=== PATIENT | male | born 1955 | race Caucasian/White ===

== ENCOUNTER 2021-03-28 07:28 | Outpatient (REF) | payer MEDICARE, SELFPAY ==
[2021-03-28 11:19] LABS: MANUAL DIFF FLAG NO
[2021-03-28 11:24] LABS: Basophils Percent Auto 0.4 % (0-2); Eosinophils Absolute Auto 0.1 X10*3/uL (0.0-0.4); Eosinophils Percent Auto 1.6 % (0-4); Hematocrit 44.1 % (42.0-52.0); Hemoglobin 14.7 g/dl (14.0-18.0); Imm Gran Abs Auto 0.03 X10*3/uL (0.00-0.03); Imm Gran Pct Auto 0.3 % (0.0-0.4); Lymphocytes Percent Auto 21.7 % (20-40); Mean Corpuscular HGB Conc 33.3 g/dl (31.0-36.0); Mean Corpuscular Hemoglobin 30.4 pg (27.0-33.0); Mean Corpuscular Volume 91.1 fL (80.0-98.0); Mean Platelet Volume 11.4 fL (9.4-12.4); Monocytes Absolute Auto 0.7 X10*3/uL (0.1-1.2); Monocytes Percent Auto 7.9 % (2-11); Neutrophils Absolute Auto 6.1 x10*3/uL (2.0-8.3); Neutrophils Percent Auto 68.1 % (45-73); Platelet Count 282 X10*3/uL (160-400); Red Blood Count 4.84 X10*6/uL (4.60-5.80); Red Cell Distribution Width 12.7 % (11.0-16.0)
[2021-03-28 11:33] LABS: Estimated Average Glucose 194 mg/dL; Hemoglobin A1c % 8.4 %
[2021-03-28 11:38] LABS: Alanine Aminotransferase 30 U/L (0-40); Albumin Level 4.4 g/dL (3.5-5.0); Alkaline Phosphatase 83 U/L (39-117); Anion Gap 13 (12-20); Aspartate Amino Transferase 18 U/L (5-37); Bilirubin Total 0.7 mg/dL (0.0-1.0); Blood Urea Nitrogen 11 mg/dL (9-16); Carbon Dioxide 25 mmol/L (22-29); Chloride 105 mmol/L (96-108); Cholesterol 143 mg/dL; Estimated Glomerular Filt Rate > 60; Glucose Fasting 191 mg/dL (60-99); HDL Cholesterol 41 mg/dL; LDL Cholesterol Calculated 58 mg/dl; Potassium 4.2 mmol/L (3.3-5.1); Sodium 139 mmol/L (135-145); Total Protein 6.8 g/dL (6.5-8.0); Triglycerides 223 mg/dL
[2021-03-28 11:57] LABS: Appearance Urine CLEAR; Color Urine YELLOW; Glucose Urine UA NEG (NEG); Leukocyte Esterase Urine NEG (NEG); Nitrite Urine NEG (NEG); Specific Gravity - Urine 1.025 (1.005-1.025); Urine Blood NEG (NEG); Urine Ketones NEG (NEG); Urine Protein NEG (NEG-TRACE)
[2021-03-28 12:01] LABS: Thyroid Stimulating Hormone 2.36 uIU/mL (0.32-4.0); Vitamin D 25-OH Total 24.6 ng/mL (>30)
[2021-03-28 12:12] LABS: Creatinine Urine 127.44 mg/dL; Microalbum/Creatinine Ratio Ur 8.6 ug/mg cr
[2021-03-28 12:17] LABS: Calcium Oxalate Crystals Urine TRACE /LPF; Mucus Urine 1+ /LPF; RBC Urine 0 /HPF (0); WBC Urine 0 /HPF (0-4)
[2021-03-28 12:52] LABS: PSA,Total (Free>4and<10) 4.54 ng/mL (0.00-4.00)
== END 2021-03-28 07:29 | disposition home or self-care (01) ==
LOC: HO.HMGCLDS 07:28
PROVIDERS: PCP Internal Medicine; Visit Provider Internal Medicine
DX: Z12.5 Encounter for screening for malignant neoplasm of prostate (principal); E11.65 Type 2 diabetes mellitus with hyperglycemia; E78.00 Pure hypercholesterolemia, unspecified; E55.9 Vitamin D deficiency, unspecified; I10 Essential (primary) hypertension
CPT/HCPCS: 36415; 80053; 80061; 81001; 82043; 82306; 83036; 84153; 84443; 85025

== ENCOUNTER 2021-08-09 07:27 | Outpatient (REF) | payer MEDICARE, SELFPAY ==
[2021-08-09 11:47] LABS: Alanine Aminotransferase 23 U/L (0-40); Albumin Level 4.3 g/dL (3.5-5.0); Alkaline Phosphatase 76 U/L (39-117); Anion Gap 14 (12-20); Aspartate Amino Transferase 19 U/L (5-37); Bilirubin Total 0.8 mg/dL (0.0-1.0); Blood Urea Nitrogen 17 mg/dL (9-16); Calcium 9.8 mg/dL (8.4-10.2); Carbon Dioxide 22 mmol/L (22-29); Chloride 106 mmol/L (96-108); Estimated Glomerular Filt Rate > 60; Glucose Fasting 166 mg/dL (60-99); Potassium 4.4 mmol/L (3.3-5.1); Sodium 138 mmol/L (135-145); Total Protein 6.8 g/dL (6.5-8.0)
[2021-08-09 11:58] LABS: PSA,Total (Free>4and<10) 5.12 ng/mL (0.00-4.00); Vitamin D 25-OH Total 31.3 ng/mL (>30)
[2021-08-09 12:12] LABS: Estimated Average Glucose 166 mg/dL; Hemoglobin A1c % 7.4 %
[2021-08-10 11:33] LABS: Free Prostate Spec Ag 0.9 ng/mL; Percent Free Prostate Spec Ag 22 % (calc) (>25); Prostate Specific Ag Total 4.1 ng/mL (< OR = 4.0)
== END 2021-08-09 07:28 | disposition home or self-care (01) ==
LOC: HO.HMGCLDS 07:27
PROVIDERS: Visit Provider Internal Medicine
DX: E11.65 Type 2 diabetes mellitus with hyperglycemia (principal); E55.9 Vitamin D deficiency, unspecified; R97.20 Elevated prostate specific antigen [PSA]; Z12.5 Encounter for screening for malignant neoplasm of prostate
CPT/HCPCS: 36415; 80053; 82306; 83036; 84153; 84154

== ENCOUNTER 2021-08-18 07:47 | Day surgery (SDC) | payer MEDICARE, SELFPAY ==
[2021-08-10 13:23] VITALS: BMI 25.3
[2021-08-18 08:18] VITALS: BP 136/70; PULSE 62; RESP 18; TEMP 36.8; O2SAT 98
--- NOTE | 2021-08-18 08:21 | P.CONAN_ITS ---
HPI - Anesthesia Eval Consult details Narrative: 66 M for colonoscopy FORMERLY [facility], 1928–1983 Past Medical History Medical History (Updated 08/10/21 @ 13:20 by Mile Jurado RN) Asthma COVID-19 vaccine series completed Diabetes Elevated cholesterol HTN (hypertension) Functional capacity: independent ambulation Family History Family history of problems with anesthesia: No Surgical History Surgical History (Updated 08/10/21 @ 12:42 by Mile Jurado RN) H/O colonoscopy History of Problems with Anesthesia: No Social History Social History Are you a primary patient care secretary to a significant other at home: No Do you presently have visiting nurse or other home services: No Patient Tobacco Use Status: Never used Tobacco Use of substances other than those prescribed or required for medical reasons: Yes Substance Use Type Other:: edible marijuana on occasion for sleep Have you been hit, kicked, punched, or otherwise hurt by someone within the past year? If so, by whom?: No Are you DNR?: No Advance Directives: No Advance Directives Information Provided: Yes (brochure mailed) Advance Directives on File: No Recently lost weight without trying: No Eating poorly because of decreased appetite: No Nutrition Risks: No Nutritional Risk Poor oral hygiene: No Meds Allergies Allergy/AdvReac Type Severity Reaction Status Date / Time No Known Allergies Allergy Verified 08/10/21 13:20 Active Medications: Current Medications Lactated Ringer's (Lr) 1,000 mls @ 80 mls/hr IVCONT .[id number] PETE Sodium Biphosphate/Sodium Phosphate (Sodium Phosphate,Stafford-Dibasic 133 Ml Enema) 133 ml NM ONCE PRN PRN Reason: Poor Colonoscopy Prep Results Home Medications Medication Instructions Recorded Confirmed Last Taken Type albuterol sulfate 90 mcg/actuation 2 puff INHALATION Q4-6H PRN 08/10/21 08/10/21 Unknown History aerosol inhaler cholecalciferol (vitamin D3) 25 25 mcg PO DAILY 08/10/21 08/10/21 Unknown History mcg (1,000 unit) capsule (Vitamin D3) coenzyme Q10 50 mg capsule (Co 50 mg PO DAILY 08/10/21 08/10/21 Unknown History Q-10) enalapril maleate 20 mg tablet 20 mg PO DAILY 08/10/21 08/10/21 Unknown History glipizide 10 mg tablet 10 mg PO DAILY 08/10/21 08/10/21 Unknown History metformin 500 mg tablet 500 mg PO BID 08/10/21 08/10/21 Unknown History simvastatin 80 mg tablet 80 mg PO BEDTIME 08/10/21 08/10/21 Unknown History Exam Exam Date and Time: August 18, [id number] Height,Weight and Vital Signs: Height 5 ft 6 in Weight 71.214 kg Last Vital Signs Temp 98.2 F 08/18/21 08:18 Pulse 62 08/18/21 08:18 Resp 18 08/18/21 08:18 BP 136/70 08/18/21 08:18 Pulse Ox 98 08/18/21 08:18 Airway Mallampati Class: III TM Dist: >3cm Neck ROM: Full Loose/Missing/Broken Teeth: Yes (Multiple chipped teeth . ) Heart: S1, S2 Lungs: b/l breath sounds Assessment and Plan Assessment Anesthesia Assessment: Anesthesia Plan Discussed and Chart Reviewed Final Anesthetic Review Family History of Problems with Anesthesia: No History of Problems with Anesthesia: No NPO: Yes ASA Class: II Final Preanesthetic Review: Meds/Allgs Chart Reviewed, Consent Obtained/Reviewed and Anes Risks/Benef Reviewed Patient Risk: Intermediate Procedure Risk: Intermediate Anesthetic Plan Anesthetic Plan: MAC: Disposition: Standard PACU
[2021-08-18 08:41] LABS: Glucose, Whole Blood 243 mg/dL (60-115)
[2021-08-18] MEDS: Lactated Ringers 1,000 ML 80 ML IVCONT (08:50)
[2021-08-18 10:40] VITALS: BP 115/63; PULSE 94; RESP 16; TEMP 36.2; O2SAT 96
--- NOTE | 2021-08-18 10:42 | PM.OP ---
Brief Operative Note Date of Service: 08/18/21 Pre-op diagnosis: Screening Post-op diagnosis: other (Colon polyps) Procedure: Colonoscopy to the cecum with bx/removal of TC polyp, and hot snare polypectomy of rectal polyp with clips x 2 Surgeon: Kobe Paniagua Anesthesia: MAC Was an Counter [employer] used for this Procedure?: No Estimated blood loss (mL): 5.0 Pathology: other (A. Transverse colon polyp B. Rectal polyp) Condition: stable Disposition: PACU
[2021-08-18 10:55] VITALS: BP 125/70; PULSE 73; RESP 16; TEMP 36.2; O2SAT 100
--- NOTE | 2021-08-18 22:15 | OP_ITS ---
SURGEON: Kobe Paniagua MD INDICATIONS: The patient presents for evaluation of colorectal cancer screening. Full consent was obtained from him for this, including risks of bleeding and perforation. PREOPERATIVE DIAGNOSIS: Colorectal cancer screening. POSTOPERATIVE DIAGNOSIS: Colorectal cancer screening, colon polyps, diverticulosis, and internal hemorrhoids. PROCEDURE PERFORMED: Colonoscopy to the cecum with biopsy and removal of polyp, and hot snare polypectomy with placement of 2 resolution clips. ESTIMATED BLOOD LOSS: COMPLICATIONS: ANESTHESIA: Monitored anesthesia care. ASSISTANTS: SPECIMENS: DESCRIPTION OF PROCEDURE: The patient was placed in the left lateral decubitus position. The digital rectal exam revealed no abnormalities. The Olympus video pediatric colonoscope was entered into the rectum and advanced easily to the cecum. Once in the cecum, I did identify normal-appearing cecal pouch with appendiceal orifice and a normal-appearing ileocecal valve. There was transillumination of light deep in the right lower quadrant. The entire cecum and ileocecal valve appeared normal. The scope was slowly withdrawn assessing all mucosal surfaces carefully. Preparation was excellent. In the transverse colon was an approximately 3 or 4 mm polyp, which was biopsied and completely removed with a cold biopsy forceps. There was a mild amount of sigmoid diverticulosis. I did not visualize any sign of colitis nor angiodysplasia. In the rectum, in the distal 3rd along what appeared to be the posterior wall, was a friable and inflammatory appearing polyp with constant oozing of blood. It was approximately 12 mm in diameter. This was removed by hot snare polypectomy and recovered by withdrawing it on the tip of the scope. The scope was advanced back into the patient. The polypectomy site appeared clean without any sign of residual bleeding nor polyp. I did place 2 resolution clips on it with good deployment and good hemostasis. The scope was retroflexed visualizing some internal hemorrhoids as well. The scope was straightened. The site of the polypectomy with the clips was irrigated and observed for at least 5 minutes and there was no bleeding. The scope was withdrawn from the patient. He tolerated the procedure well and was returned to the recovery area in stable condition. IMPRESSION: 1. Colon polyps. 2. Diverticulosis. 3. Internal hemorrhoids. PLAN: The results of the pathology will be checked. If the rectal polyp is only inflammatory and nothing more worrisome, then I would recommend a repeat colonoscopy in 5 years if the polyp in the transverse colon is a tubular adenoma. If the rectal polyp is adenomatous or anything more worrisome, then we would possibly need to proceed sooner given the size and appearance of it. He was advised not to use any aspirin and NSAIDs for at least 1 week. This has been discussed with his . MD KVNG Bhandari/QAMAR / [id number] MTDD
== END 2021-08-18 11:47 | disposition home or self-care (01) ==
PROVIDERS: PCP Internal Medicine; Visit Provider Internal Medicine
PROC: 0DJD8ZZ Inspection of Lower Intestinal Tract, Via Natural or Artificial Opening Endoscopic (ICD-10-PCS; CPT 45378; principal; 2021-08-18 09:10)
DX: Z12.11 Encounter for screening for malignant neoplasm of colon (principal); D12.3 Benign neoplasm of transverse colon; K62.1 Rectal polyp; K57.30 Diverticulosis of large intestine without perforation or abscess without bleeding; K64.8 Other hemorrhoids; I10 Essential (primary) hypertension; E78.00 Pure hypercholesterolemia, unspecified; J45.909 Unspecified asthma, uncomplicated; E11.9 Type 2 diabetes mellitus without complications; Z79.84 Long term (current) use of oral hypoglycemic drugs; Z79.899 Other long term (current) drug therapy
CPT/HCPCS: 45385; 45380; 82947; 88305

== ENCOUNTER 2021-09-13 08:22 | Outpatient (REF) | payer MEDICARE, SELFPAY ==
[2021-09-13 12:23] LABS: Prostate Specific Antigen 4.28 ng/mL (<0.05-4.0)
== END 2021-09-13 08:23 | disposition home or self-care (01) ==
LOC: HO.HMGCLDS 08:22
PROVIDERS: PCP Internal Medicine; Visit Provider Urology
DX: Z12.5 Encounter for screening for malignant neoplasm of prostate (principal); R97.20 Elevated prostate specific antigen [PSA]
CPT/HCPCS: 36415; 84153

== ENCOUNTER 2022-03-29 08:52 | Outpatient (REF) | payer MEDICARE, SELFPAY ==
[2022-03-29 12:10] LABS: Prostate Specific Antigen 4.25 ng/mL (<0.05-4.0)
== END 2022-03-29 08:53 | disposition home or self-care (01) ==
LOC: HO.HMGCLDS 08:52
PROVIDERS: PCP Internal Medicine; Visit Provider Urology
DX: Z12.5 Encounter for screening for malignant neoplasm of prostate (principal); R97.20 Elevated prostate specific antigen [PSA]
CPT/HCPCS: 36415; 84153

== ENCOUNTER 2022-10-10 09:33 | Outpatient (REF) | payer MEDICARE, SELFPAY ==
[2022-10-12 11:12] LABS: Percent Free Prostate Spec Ag 26 % (calc) (>25); Prostate Specific Ag Total 3.8 ng/mL (< OR = 4.0)
== END 2022-10-10 09:34 | disposition home or self-care (01) ==
LOC: HO.HMGCLDS 09:33
PROVIDERS: PCP Internal Medicine; Visit Provider Physician Assistant Surgical
DX: R97.20 Elevated prostate specific antigen [PSA] (principal)
CPT/HCPCS: 36415; 84154

== ENCOUNTER 2022-10-24 07:47 | Outpatient (REF) | payer MEDICARE, SELFPAY ==
[2022-10-24 11:16] LABS: MANUAL DIFF FLAG NO
[2022-10-24 11:23] LABS: Basophils Absolute Auto 0.1 X10*3/uL (0.0-0.2); Basophils Percent Auto 0.7 % (0-2); Eosinophils Absolute Auto 0.2 X10*3/uL (0.0-0.4); Eosinophils Percent Auto 2.9 % (0-4); Hematocrit 43.8 % (42.0-52.0); Hemoglobin 14.4 g/dl (14.0-18.0); Imm Gran Abs Auto 0.02 X10*3/uL (0.00-0.03); Imm Gran Pct Auto 0.3 % (0.0-0.4); Lymphocytes Absolute Auto 1.9 X10*3/uL (1.2-4.9); Lymphocytes Percent Auto 25.4 % (20-40); Mean Corpuscular HGB Conc 32.9 g/dl (31.0-36.0); Mean Corpuscular Hemoglobin 30.6 pg (27.0-33.0); Mean Platelet Volume 11.4 fL (9.4-12.4); Monocytes Absolute Auto 0.6 X10*3/uL (0.1-1.2); Monocytes Percent Auto 8.1 % (2-11); Neutrophils Absolute Auto 4.7 x10*3/uL (2.0-8.3); Neutrophils Percent Auto 62.6 % (45-73); Platelet Count 240 X10*3/uL (160-400); Red Blood Count 4.71 X10*6/uL (4.60-5.80); Red Cell Distribution Width 12.9 % (11.0-16.0); White Blood Count 7.6 X10*3/uL (4.8-10.8)
[2022-10-24 11:31] LABS: Estimated Average Glucose 171 mg/dL; Hemoglobin A1c % 7.6 %
[2022-10-24 11:53] LABS: Alanine Aminotransferase 24 U/L (0-40); Albumin Level 4.1 g/dL (3.5-5.0); Alkaline Phosphatase 68 U/L (39-117); Anion Gap 9 (12-20); Aspartate Amino Transferase 22 U/L (5-37); Bilirubin Total 0.9 mg/dL (0.0-1.0); Blood Urea Nitrogen 16 mg/dL (9-16); Calcium 9.9 mg/dL (8.4-10.2); Carbon Dioxide 26 mmol/L (22-29); Chloride 105 mmol/L (96-108); Cholesterol 134 mg/dL; Estimated Glomerular Filt Rate > 60; Glucose Fasting 199 mg/dL (60-99); HDL Cholesterol 38 mg/dL; LDL Cholesterol Calculated 63 mg/dl; Potassium 4.5 mmol/L (3.3-5.1); Sodium 135 mmol/L (135-145); Total Protein 6.8 g/dL (6.5-8.0); Triglycerides 165 mg/dL
[2022-10-24 12:12] LABS: Thyroid Stimulating Hormone 1.73 uIU/mL (0.32-4.0); Vitamin D 25-OH Total 70.1 ng/mL (>30)
[2022-10-24 12:13] LABS: Creatinine Urine 100.88 mg/dL; Microalbum/Creatinine Ratio Ur 7.9 ug/mg cr
== END 2022-10-24 07:48 | disposition home or self-care (01) ==
LOC: HO.HMGCLDS 07:47
PROVIDERS: PCP Internal Medicine; Visit Provider Internal Medicine
DX: E11.65 Type 2 diabetes mellitus with hyperglycemia (principal); I10 Essential (primary) hypertension; E78.00 Pure hypercholesterolemia, unspecified; E55.9 Vitamin D deficiency, unspecified
CPT/HCPCS: 36415; 80053; 80061; 82043; 82306; 83036; 84443; 85025

== ENCOUNTER 2023-01-23 11:35 | Outpatient (REF) | payer MEDICARE, SELFPAY ==
[2023-01-23 14:03] LABS: Estimated Average Glucose 171 mg/dL; Hemoglobin A1c % 7.6 % (<6.0)
== END 2023-01-23 11:36 | disposition home or self-care (01) ==
LOC: HO.HMGCLDS 11:35
PROVIDERS: PCP Internal Medicine; Visit Provider Internal Medicine
DX: E11.65 Type 2 diabetes mellitus with hyperglycemia (principal)
CPT/HCPCS: 36415; 83036

== ENCOUNTER 2023-06-12 08:35 | Outpatient (REF) | payer MEDICARE, SELFPAY ==
[2023-06-12 12:08] LABS: Anion Gap 13 (12-20); Blood Urea Nitrogen 16 mg/dL (9-16); Calcium 9.7 mg/dL (8.4-10.2); Carbon Dioxide 25 mmol/L (22-29); Chloride 104 mmol/L (96-108); Estimated Glomerular Filt Rate 58; Glucose Random 261 mg/dL (60-115); Potassium 4.6 mmol/L (3.3-5.1); Sodium 137 mmol/L (135-145)
[2023-06-12 12:41] LABS: Prostate Specific Antigen 4.03 ng/mL (<0.05-4.0)
== END 2023-06-12 08:36 | disposition home or self-care (01) ==
LOC: HO.HMGCLDS 08:35
PROVIDERS: PCP Internal Medicine; Visit Provider Physician Assistant
DX: N40.1 Benign prostatic hyperplasia with lower urinary tract symptoms (principal); Z12.5 Encounter for screening for malignant neoplasm of prostate
CPT/HCPCS: 36415; 80048; 84153

== ENCOUNTER 2023-07-24 07:32 | Outpatient (REF) | payer MEDICARE, SELFPAY ==
[2023-07-24 10:23] LABS: Appearance Urine Clear; Color Urine Yellow; Glucose Urine UA 100 mg/dL (Negative); Leukocyte Esterase Urine Negative (Negative); Nitrite Urine Negative (Negative); PH 5.5 (5.0-9.0); Urine Blood Negative (Negative); Urine Ketones Trace mg/dL (Negative); Urine Protein Negative (Neg-Trace)
[2023-07-24 10:31] LABS: MANUAL DIFF FLAG NO
[2023-07-24 10:35] LABS: Basophils Percent Auto 0.5 % (0-2); Eosinophils Absolute Auto 0.2 X10*3/uL (0.0-0.4); Eosinophils Percent Auto 2.1 % (0-4); Hematocrit 44.8 % (42.0-52.0); Imm Gran Abs Auto 0.02 X10*3/uL (0.00-0.03); Imm Gran Pct Auto 0.2 % (0.0-0.4); Lymphocytes Absolute Auto 1.7 X10*3/uL (1.2-4.9); Lymphocytes Percent Auto 21.1 % (20-40); Mean Corpuscular HGB Conc 33.5 g/dl (31.0-36.0); Mean Corpuscular Hemoglobin 31.2 pg (27.0-33.0); Mean Corpuscular Volume 93.1 fL (80.0-98.0); Mean Platelet Volume 11.1 fL (9.4-12.4); Monocytes Absolute Auto 0.7 X10*3/uL (0.1-1.2); Monocytes Percent Auto 8.1 % (2-11); Neutrophils Absolute Auto 5.5 x10*3/uL (2.0-8.3); Platelet Count 257 X10*3/uL (160-400); Red Blood Count 4.81 X10*6/uL (4.60-5.80); Red Cell Distribution Width 12.9 % (11.0-16.0)
[2023-07-24 10:49] LABS: Bacteria Urine None Seen (None Seen); Hyaline Casts Urine 0-2 /LPF (0-2); RBC Urine 0-2 /HPF (0-2); Squamous Epithelial Cell Urine 0-2 /HPF (0-2); WBC Urine 0-5 /HPF (0-5)
[2023-07-24 10:53] LABS: Alanine Aminotransferase 21 U/L (0-40); Albumin Level 4.2 g/dL (3.5-5.0); Alkaline Phosphatase 77 U/L (39-117); Anion Gap 11 (12-20); Aspartate Amino Transferase 16 U/L (5-37); Bilirubin Total 0.7 mg/dL (0.0-1.0); Blood Urea Nitrogen 13 mg/dL (9-16); Calcium 9.7 mg/dL (8.4-10.2); Carbon Dioxide 26 mmol/L (22-29); Chloride 106 mmol/L (96-108); Cholesterol 131 mg/dL (<200); Estimated Glomerular Filt Rate 55; Glucose Fasting 193 mg/dL (60-99); HDL Cholesterol 43 mg/dL (>40); LDL Cholesterol Calculated 53 mg/dL (<100); Potassium 4.5 mmol/L (3.3-5.1); Sodium 138 mmol/L (135-145); Total Protein 6.8 g/dL (6.5-8.0); Triglycerides 177 mg/dL (<150)
[2023-07-24 11:02] LABS: Estimated Average Glucose 171 mg/dL; Hemoglobin A1c % 7.6 % (<6.0)
[2023-07-24 11:05] LABS: Creatinine Urine 93.96 mg/dL; Microalbum/Creatinine Ratio Ur 10.6 ug/mg cr (<30)
== END 2023-07-24 07:33 | disposition home or self-care (01) ==
LOC: HO.HMGCLDS 07:32
PROVIDERS: PCP Internal Medicine; Visit Provider Internal Medicine
DX: E11.65 Type 2 diabetes mellitus with hyperglycemia (principal); I10 Essential (primary) hypertension; E78.00 Pure hypercholesterolemia, unspecified
CPT/HCPCS: 36415; 80053; 80061; 81001; 82043; 82570; 83036; 85025

== ENCOUNTER 2024-01-29 07:21 | Outpatient (REF) | payer MEDICARE, SELFPAY ==
[2024-01-29 10:05] LABS: MANUAL DIFF FLAG NO
[2024-01-29 10:07] LABS: Basophils Percent Auto 0.4 % (0-2); Eosinophils Absolute Auto 0.2 X10*3/uL (0.0-0.4); Eosinophils Percent Auto 2.7 % (0-4); Hematocrit 40.2 % (42.0-52.0); Hemoglobin 13.6 g/dl (14.0-18.0); Imm Gran Abs Auto 0.03 X10*3/uL (0.00-0.03); Imm Gran Pct Auto 0.4 % (0.0-0.4); Lymphocytes Absolute Auto 1.7 X10*3/uL (1.2-4.9); Lymphocytes Percent Auto 21.5 % (20-40); Mean Corpuscular HGB Conc 33.8 g/dl (31.0-36.0); Mean Corpuscular Hemoglobin 31.2 pg (27.0-33.0); Mean Corpuscular Volume 92.2 fL (80.0-98.0); Mean Platelet Volume 11.3 fL (9.4-12.4); Monocytes Absolute Auto 0.7 X10*3/uL (0.1-1.2); Monocytes Percent Auto 8.4 % (2-11); Neutrophils Absolute Auto 5.4 x10*3/uL (2.0-8.3); Neutrophils Percent Auto 66.6 % (45-73); Platelet Count 255 X10*3/uL (160-400); Red Blood Count 4.36 X10*6/uL (4.60-5.80); Red Cell Distribution Width 12.9 % (11.0-16.0); White Blood Count 8.1 X10*3/uL (4.8-10.8)
[2024-01-29 10:41] LABS: Alanine Aminotransferase 23 U/L (0-40); Albumin Level 4.1 g/dL (3.5-5.0); Alkaline Phosphatase 69 U/L (39-117); Anion Gap 13 (12-20); Aspartate Amino Transferase 20 U/L (5-37); Bilirubin Total 0.6 mg/dL (0.0-1.0); Blood Urea Nitrogen 18 mg/dL (9-16); Calcium 9.9 mg/dL (8.4-10.2); Carbon Dioxide 25 mmol/L (22-29); Chloride 106 mmol/L (96-108); Cholesterol 118 mg/dL (<200); Estimated Glomerular Filt Rate 57; Glucose Fasting 174 mg/dL (60-99); HDL Cholesterol 36 mg/dL (>40); LDL Cholesterol Calculated 46 mg/dL (<100); Potassium 4.4 mmol/L (3.3-5.1); Sodium 140 mmol/L (135-145); Total Protein 6.7 g/dL (6.5-8.0); Triglycerides 180 mg/dL (<150)
[2024-01-29 10:42] LABS: Thyroid Stimulating Hormone 1.61 uIU/mL (0.32-4.0); Vitamin D 25-OH Total 53.8 ng/mL (>30)
[2024-01-29 13:47] LABS: Appearance Urine Clear; Color Urine Yellow; Glucose Urine UA 500 mg/dL (Negative); Leukocyte Esterase Urine Negative (Negative); Nitrite Urine Negative (Negative); PH 5.5 (5.0-9.0); Urine Blood Negative (Negative); Urine Ketones Negative (Negative); Urine Protein Negative (Neg-Trace)
[2024-01-29 13:55] LABS: Bacteria Urine None Seen (None Seen); Hyaline Casts Urine 0-2 /LPF (0-2); RBC Urine 0-2 /HPF (0-2); Squamous Epithelial Cell Urine 0-2 /HPF (0-2); WBC Urine 0-5 /HPF (0-5)
[2024-01-29 14:36] LABS: Creatinine Urine 44.56 mg/dL; Microalbumin Urine < 5.0 mg/L
== END 2024-01-29 07:22 | disposition home or self-care (01) ==
LOC: HO.HMGCLDS 07:21
PROVIDERS: PCP Internal Medicine; Visit Provider Internal Medicine
DX: Z00.00 Encounter for general adult medical examination without abnormal findings (principal); E11.65 Type 2 diabetes mellitus with hyperglycemia; I10 Essential (primary) hypertension; E78.00 Pure hypercholesterolemia, unspecified; E55.9 Vitamin D deficiency, unspecified
CPT/HCPCS: 36415; 80053; 80061; 81001; 82043; 82306; 82570; 84443; 85025

== ENCOUNTER 2024-02-13 10:31 | Outpatient (REF) | payer MEDICARE, SELFPAY ==
[2024-02-13 13:19] LABS: MANUAL DIFF FLAG NO
[2024-02-13 13:37] LABS: Basophils Percent Auto 0.3 % (0-2); Eosinophils Absolute Auto 0.2 X10*3/uL (0.0-0.4); Eosinophils Percent Auto 1.6 % (0-4); Hematocrit 43.4 % (42.0-52.0); Hemoglobin 14.6 g/dl (14.0-18.0); Imm Gran Abs Auto 0.04 X10*3/uL (0.00-0.03); Imm Gran Pct Auto 0.4 % (0.0-0.4); Lymphocytes Absolute Auto 1.6 X10*3/uL (1.2-4.9); Lymphocytes Percent Auto 17.2 % (20-40); Mean Corpuscular HGB Conc 33.6 g/dl (31.0-36.0); Mean Corpuscular Hemoglobin 31.4 pg (27.0-33.0); Mean Corpuscular Volume 93.3 fL (80.0-98.0); Mean Platelet Volume 11.5 fL (9.4-12.4); Monocytes Absolute Auto 0.7 X10*3/uL (0.1-1.2); Monocytes Percent Auto 7.3 % (2-11); Neutrophils Absolute Auto 6.8 x10*3/uL (2.0-8.3); Neutrophils Percent Auto 73.2 % (45-73); Platelet Count 272 X10*3/uL (160-400); Red Blood Count 4.65 X10*6/uL (4.60-5.80); Red Cell Distribution Width 12.9 % (11.0-16.0); White Blood Count 9.2 X10*3/uL (4.8-10.8)
[2024-02-13 13:48] LABS: Appearance Urine Clear; Color Urine Yellow; Glucose Urine UA >=1000 mg/dL (Negative); Leukocyte Esterase Urine Negative (Negative); Nitrite Urine Negative (Negative); PH 6.5 (5.0-9.0); Specific Gravity - Urine 1.015 (1.005-1.025); UMIC TRIGGER UA YES; Urine Blood Negative (Negative); Urine Ketones Trace mg/dL (Negative); Urine Protein Negative (Neg-Trace)
[2024-02-13 13:52] LABS: Estimated Average Glucose 160 mg/dL; Hemoglobin A1C 202.7076 umol/L; Hemoglobin A1c % 7.2 % (<6.0)
[2024-02-13 13:52] LABS: Bacteria Urine None Seen (None Seen); Hyaline Casts Urine 0-2 /LPF (0-2); RBC Urine 0-2 /HPF (0-2); Squamous Epithelial Cell Urine 0-2 /HPF (0-2); WBC Urine 0-5 /HPF (0-5)
== END 2024-02-13 10:32 | disposition home or self-care (01) ==
LOC: HO.HMGCLDS 10:31
PROVIDERS: PCP Internal Medicine; Visit Provider Internal Medicine
DX: Z00.00 Encounter for general adult medical examination without abnormal findings (principal); E11.65 Type 2 diabetes mellitus with hyperglycemia; I10 Essential (primary) hypertension
CPT/HCPCS: 36415; 81001; 83036; 85025

== ENCOUNTER 2024-06-12 07:58 | Outpatient (REF) | payer MEDICARE, SELFPAY ==
--- OUTSIDE RECORDS SUMMARY | 2024-06-12 08:01 | XMS_ITS ---
Author Organization Kobe Macario DO, [facility] Address [address], [place] [id number] Care Team Providers Care Horse Race Starter Name Role Phone Kobe Macario Primary Care Provider REASON FOR VISIT Message SOCIAL HISTORY Sex Assigned At : Social History Observation Description Sex Assigned At Male Encounters Encounter Location Date Provider Diagnosis Kobe Macario DO, FACP [address], [place] [id number] 01/10/2024 Kobe Macario Type 2 diabetes eleazar itus with hyperglycemia E11.65 ; Essential hypertension I10 ; Hypercholesterolemia E78.00 ; Vitamin D deficiency E55.9 and Encounter for general adult medical examination without abnormal findings Z00.00 ASSESSMENTS Encounter Date Diagnosis Assessment Notes Treatment Notes Treatment Clinical Notes 01/10/2024 Type 2 diabetes eleazar itus with hyperglycemia (ICD-10 - E11.65) 01/10/2024 Essential hypertensi on (ICD-10 - I10) 01/10/2024 Hypercholesterolemia (ICD-10 - E78.00) 01/10/2024 Vitamin D deficiency (ICD-10 - E55.9) 01/10/2024 Encounter for genera l adult medical examination without abnormal findings (ICD-10 - Z00.00) PLAN OF TREATMENT No Information
--- OUTSIDE RECORDS SUMMARY | 2024-06-12 08:01 | XMS_ITS ---
Author Organization Kobe Macario DO, FACP Address [address] [place], [place] [id number] Care Team Providers Care Gas Leak Inspector Name Role Phone RenaldoKobe farooq Primary Care Provider ALLERGIES Allergen (clinical drug ingredient) Drug/Non Drug Allergy documented on EMR Reaction Allergy Type Onset Date Status atorvastatin Lipitor muscle aches, tachycardia Drug Allergy Active REASON FOR VISIT physical, annual visit, Follow up type II diabetes mellitus MEDICATIONS Medication SIG (Take, Route, Frequency, Duration) Notes Start Date End Date Status metFORMIN HCl 1000 MG 1 tablet with a me al Orally Twice a day Active glipiZIDE 10 MG 1 tablet 30 minutes before breakfast Orally Once a day Active Simvastatin 80 MG 1 tablet in the even ing Orally Once a day Active Co Q-10 200 MG 1 capsule with a dora l Orally Once a day Active Vitamin D 1000 UNIT 1 capsule Orally Onc e a day 02/17/2015 Active Albuterol Sulfate HFA 108 (90 Base) MCG/ACT 1 puff as needed Inhalation every 4 hrs Active Enalapril Maleate 10 MG 1 tablet Orally Once a day for 90 days Active Enalapril Maleate 10 MG 1 tablet Orally Once a day for 30 day(s) 02/05/2024 Active SOCIAL HISTORY Tobacco Use: Social History Observation Description Date Details (start date - stop date) Never Smoker NA - NA Sex Assigned At : Social History Observation Description Sex Assigned At Male Tobacco Use/Smoking Question Answer Notes Patient is a nonsmoker Additional Findings: Tobacco Non-User Cu rrent non-smoker, currently using no form of tobacco Alcohol Screen Question Answer Notes Did you have a drink contain ing alcohol in the past year? Yes How often did you have a dri nk containing alcohol in the past year? Monthly or less (1 point) How many drinks did you have on a typical day when you were drinking in the past year? 1 or 2 drinks (0 point) How often did you have 6 or more drinks on one occasion in the past year? Never (0 point) Points 1 Interpretation Negative VITAL SIGNS BMI 25.12 kg/m2 02/05/2024 Blood pressure systolic 126 mm Hg 02/05/20 24 Blood pressure diastolic 58 mm Hg 024 Height 66.5 in 02/05/2024 Weight 158 lbs 02/05/2024 Encounters Encounter Location Date Provider Diagnosis Kobe Macario DO, [address] [id number] 02/05/2024 Kobe Macario Encounter for genera l adult medical examination without abnormal findings Z00.00 ; Type 2 diabetes mellitus with hyperglycemia E11.65 ; Essential hypertension I10 ; Hypercholesterolemia E78.00 ; Vitamin D deficiency E55.9 and Elevated PSA R97.20 ASSESSMENTS Encounter Date Diagnosis Assessment Notes Treatment Notes Treatment Clinical Notes 02/05/2024 Encounter for genera l adult medical examination without abnormal findings (ICD-10 - Z00.00) 02/05/2024 Type 2 diabetes eleazar itus with hyperglycemia (ICD-10 - E11.65) 02/05/2024 Essential hypertensi on (ICD-10 - I10) 02/05/2024 Hypercholesterolemia (ICD-10 - E78.00) 02/05/2024 Vitamin D deficiency (ICD-10 - E55.9) 02/05/2024 Elevated PSA (ICD-10 - R97.20) PLAN OF TREATMENT Medication Medication Name Sig Start Date Stop Date Notes metFORMIN HCl 1000 MG 1 tablet with a me al Orally Twice a day glipiZIDE 10 MG 1 tablet 30 minutes before breakfast Orally Once a day Simvastatin 80 MG 1 tablet in the even ing Orally Once a day Co Q-10 200 MG 1 capsule with a dora l Orally Once a day Vitamin D 1000 UNIT 1 capsule Orally Once a day 02/17/2015 Albuterol Sulfate HFA 108 (9 0 Base) MCG/ACT 1 puff as needed Inhalation every 4 hrs Enalapril Maleate 10 MG 1 tablet Orally Once a day for 30 day(s) 02/05/2024 Next Appt Details Follow Up: 6 Months, Reason: follow up visit Progress Notes * Examination Category Sub-Category Detail Notes General Examination GENERAL APPEARANCE: well dev eloped, well nourished, in no acute distress HEAD: normocephalic, atrau matic EYES: sclera non-icteric NECK/THYROID: neck supple, full ra nge of motion, no cervical lymphadenopathy, thyroid normal, no carotid bruit HEART: regular rate and rhy thm, S1, S2 normal, no murmurs CHEST: normal LUNGS: clear to auscultatio n bilaterally ABDOMEN: soft, nontender, non distended, bowel sounds present, normal NEUROLOGIC: nonfocal, motor stre ngth normal upper and lower extremities, sensory exam intact SKIN: warm and dry EXTREMITIES: no edema PERIPHERAL PULSES: 2+ dorsalis pedis, 2 + posterior tibial MALE GENITOURINARY per Urology RECTAL EXAM: per Urology PSYCH: alert, oriented, cog nitive function intact, cooperative with exam, good eye contact, judgement and insight good History and Physical Notes * HPI (History of Present Illness) Category Sub-Category Detail Notes Depression Screening PHQ-9 Little inte rest or pleasure in doing things: Not at all Feeling down, depressed, or hopeless: No t at all Trouble falling or staying asleep, or sl eeping too much: Not at all Feeling tired or having little energy: N ot at all Poor appetite or overeating: Not at all Feeling bad about yourself o r that you are a failure, or have let yourself or your family down: Not at all Trouble concentrating on thi ngs, such as reading the newspaper or watching television: Not at all Moving or speaking so slowly that other people could have noticed; or the opposite, being so fidgety or restless that you have been moving around a lot more than usual: Not at all Thoughts that you would be b vanesa off or of hurting yourself in some way: Not at all Total Score: 0 Interpretation and Intervention Depression Manjit hickey Findings: Negative Follow-Up for Depression: : Review of PH Q-9 found negative result; no follow-up needed Fall Risk Fall History Have you had two or more fal ls in the past year?: No Have you had any falls with injury in th e past year?: No Fall Risk Assessment:: No falls in the p ast year Communication Needs [facility] Communication Needs - [facility] Heath chan Impairment?: No Vision Impairment?: Yes wears glasses fo r reading Cognitive Impairment?: No SDOH Questions SDOH Questions In the past year have you been worried about losing your housing?: No In the past year have you or any family members you live with been unable to get any of the following when it was really needed? Check all that apply:: None
--- OUTSIDE RECORDS SUMMARY | 2024-06-12 08:01 | XMS_ITS | Patient Health Record ---
Author Organization [facility] Address [address] [place] [address] Care Team Providers Care Gas Load Dispatcher Name Role Phone Renaldo (RETIRED) Kobe VIGIL Primary Care Provid er Unavailable Kobe Paniagua Unavailable [phone] REASON FOR REFERRAL No Information MEDICATIONS Medication SIG (Take, Route, Fr equency, Duration) Notes Start Date End Date Status Vitamin D Active Co Q 10 60 MG as directed Orally Active glipiZIDE 10 MG 1 tablet Orally Once a day for 30 day(s) Active metFORMIN HCl 500 MG 1 tablet with a dora l Orally Once a day for 30 day(s) Active Simvastatin 80 MG TAKE 1 TABLET BY ASIA TH EVERY EVENING Oral for 90 Active Enalapril Maleate 20 MG 1 tablet Orally Once a day for 30 day(s) Active IMMUNIZATIONS Vaccine Route Administration Date Status Comme nts Influenza Unknown 12/28/2020 Administered Influenza Unknown 09/18/2018 Refused SOCIAL HISTORY Tobacco Use: Social History Observation Description Date Details (start date - stop date) Never Smoker NA - NA Sex Assigned At : Social History Observation Description Sex Assigned At Unknown Tobacco Use/Smoking Question Answer Notes Patient is a nonsmoker Alcohol Screen Question Answer Notes Did you [...] Never (0 point) Points 1 Interpretation Negative PROBLEMS Problem Type ICD Code Onset Dates Problem Status W/U Status Risk SNOMED Code Notes Problem Encounter for screening for malignant neoplasm of colon (Z12.11) Active confirmed [id number] Problem Preprocedural examination (Z01.818) Active confirmed [id number] Problem Diverticulosis of colon (K57.30) Active confirmed Diverticulosi s of colon (612083577) PLAN OF TREATMENT Future Test Test Name Order Date COLONOSCOPY 07/13/2021 Insurance Providers Payer Name Payer Address Payer Phone Subscriber Number Group Number Insured Name Patient Relationship to Insured Coverage Start Date Coverage End Date [facility] [employer] [address] [place] [address] [id number] SCHUYLER OLSON Self - patient is the insured MEDICAL (GENERAL) HISTORY Medical History History ICD Code NIDDM Denies VT,CVA, renal disease Negative screening colonoscopy with me i n 2005 HTN Hyperlipidemia Asthma--use inhaler rarely Surgical History Surgery Date(Month/Year)
--- OUTSIDE RECORDS SUMMARY | 2024-06-12 08:02 | XMS_ITS ---
Author Organization Kobe Macario DO, [facility] Address [address], [place] [id number] Care Team Providers Care Radiology Assistant Name Role Phone RenaldoKobe farooq Primary Care Provider REASON FOR VISIT Refills MEDICATIONS Medication SIG (Take, Route, Fr equency, Duration) Notes Start Date End Date Status Enalapril Maleate 10 MG 1 tablet Orally Once a day for 90 days 02/05/2024 Active SOCIAL HISTORY Sex Assigned At : Social History Observation Description Sex Assigned At Male Encounters Encounter Location Date Provider Diagnosis Kobe Macario DO [facility] [address], [place] [phone] 03/02/2024 Kobe Macario Essential hypertension I10 ASSESSMENTS Encounter Date Diagnosis Assessment Notes Treatment Notes Treatment Clinical Notes 03/02/2024 Essential hypertension (ICD-10 - I10) PLAN OF TREATMENT Medication Medication Name Sig Start Date Stop Date Notes Enalapril Maleate 10 MG 1 tablet Orally Once a day for 90 days 02/05/2024
== END 2024-06-12 07:59 | disposition home or self-care (01) ==
LOC: HO.HMGCLDS 07:58
PROVIDERS: PCP Internal Medicine; Visit Provider Physician Assistant
DX: R97.20 Elevated prostate specific antigen [PSA] (principal); Z12.5 Encounter for screening for malignant neoplasm of prostate
CPT/HCPCS: 36415; 84153

== ENCOUNTER 2024-08-06 07:24 | Outpatient (REF) | payer MEDICARE, SELFPAY ==
[2024-08-06 10:27] LABS: Estimated Average Glucose 160 mg/dL; Hemoglobin A1c % 7.2 % (<6.0); Total Hemoglobin (HGBA1C) 3763.3526 umol/L
[2024-08-06 10:34] LABS: Alanine Aminotransferase 19 U/L (0-40); Albumin Level 4.4 g/dL (3.5-5.0); Alkaline Phosphatase 80 U/L (39-117); Anion Gap 13 (12-20); Aspartate Amino Transferase 23 U/L (5-37); Bilirubin Direct 0.2 mg/dL (0.0-0.5); Bilirubin Total 0.7 mg/dL (0.0-1.0); Blood Urea Nitrogen 13 mg/dL (9-16); Calcium 9.9 mg/dL (8.4-10.2); Carbon Dioxide 26 mmol/L (22-29); Chloride 109 mmol/L (96-108); Cholesterol 125 mg/dL (<200); Estimated Glomerular Filt Rate > 60; Glucose Random 185 mg/dL (60-115); HDL Cholesterol 44 mg/dL (>40); LDL Cholesterol Calculated 39 mg/dL (<100); Potassium 4.6 mmol/L (3.3-5.1); Sodium 143 mmol/L (135-145); Triglycerides 210 mg/dL (<150)
[2024-08-06 10:40] LABS: Appearance Urine Clear; Color Urine Yellow; Glucose Urine UA Negative (Negative); Leukocyte Esterase Urine Negative (Negative); Nitrite Urine Negative (Negative); PH 5.5 (5.0-9.0); Specific Gravity - Urine 1.015 (1.005-1.025); Urine Blood Negative (Negative); Urine Ketones Trace mg/dL (Negative); Urine Protein Negative (Neg-Trace)
[2024-08-06 19:39] LABS: Creatinine Urine 103.94 mg/dL; Microalbum/Creatinine Ratio Ur 6.7 ug/mg cr (<30)
[2024-08-06 19:44] LABS: Hematocrit 43.3 % (42.0-52.0); Hemoglobin 14.4 g/dl (14.0-18.0); Mean Corpuscular HGB Conc 33.3 g/dl (31.0-36.0); Mean Corpuscular Hemoglobin 31.2 pg (27.0-33.0); Mean Corpuscular Volume 93.7 fL (80.0-98.0); Mean Platelet Volume 11.4 fL (9.4-12.4); Platelet Count 243 X10*3/uL (160-400); Red Blood Count 4.62 X10*6/uL (4.60-5.80); Red Cell Distribution Width 13.2 % (11.0-16.0); White Blood Count 7.8 X10*3/uL (4.8-10.8)
== END 2024-08-06 07:25 | disposition home or self-care (01) ==
LOC: HO.HMGCLDS 07:24
PROVIDERS: PCP Internal Medicine; Visit Provider Internal Medicine
DX: E11.9 Type 2 diabetes mellitus without complications (principal)
CPT/HCPCS: 36415; 80048; 80061; 80076; 81003; 82043; 82570; 83036; 84443; 85027

== ENCOUNTER 2024-08-18 11:05 | Outpatient (AMB) | payer MEDICARE, SELFPAY ==
--- NOTE | 2024-08-18 11:19 | MHC.PC.OV ---
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 Accompanied by: Self / Same As Patient Allergies No Known Allergies Allergy (Verified 08/18/24 11:58) Medication List - Last Reconciled 08/18/24 by Neil Goldman MD albuterol sulfate 90 mcg/actuation 2 puffs inhalation Q4-6H PRN cholecalciferol (vitamin D3) (Vitamin D3) 25 mcg PO DAILY coenzyme Q10 (Co Q-10) 50 mg PO DAILY enalapril maleate 20 mg PO DAILY glipizide 10 mg PO DAILY metformin 1,000 mg PO BIDWMEAL simvastatin 80 mg PO BEDTIME tamsulosin mg PO Tobacco use date assessed: 08/18/24 Fall risk assessment: No Falls in past year Last assessed Fall Risk: 08/18/24 Dental Screening Dental Screen Date: 08/18/24 Did you have a dental visit in the last 12 months?: No Did you have a dental problem in the last 6 months where you did not have access to dental care?: No [facility] Medical History COVID-19 vaccine series completed Asthma Elevated cholesterol HTN (hypertension) Diabetes Surgical History H/O colonoscopy (~08/18/21) Family History (Updated 08/18/24 @ 11:33 by ZELDA Yates) Father Pancoast tumor Mother Heart attack Social History (Updated 08/18/24 @ 11:33 by ZELDA Yates) Housing: Apartment Are you a primary medicare insurance specialist to a significant other at home: No Do you presently have visiting nurse or other home services: No Alcohol intake: current Alcohol intake frequency: does not drink Patient Tobacco Use Status: Never used Tobacco service: No Current occupational status: retired Cognitive needs: No Hearing needs: No Vision needs: Yes (reading glasses) Questionnaire PHQ-9 Over the last 2 weeks, how often have you been bothered by any of the following problems? 1. Little interest or pleasure in doing things: not at all 2. Feeling down, depressed, or hopeless: not at all 3. Trouble falling or staying asleep, or sleeping too much: not at all 4. Feeling tired or having little energy: not at all 5. Poor appetite or overeating: not at all 6. Feeling bad about yourself - or that you are a failure or have let yourself or your family down: not at all 7. Trouble concentrating on things, such as reading the newspaper or watching television: not at all 8. Moving or speaking so slowly that other people could have noticed. Or the opposite - being so fidgety or restless that you have been moving around a lot more than usual: not at all 9. Thoughts that you would be better off or of hurting yourself in some way: not at all Total score: 0 Source: Developed by Drs. Kobe Guzman, Hollie Lewis, Harvey Ambriz and colleagues, with an educational kenneth from [employer]. Thrive Questionnaire Date Thrive assessed: 08/18/24 I am a: Patient What is your living situation today?: I have a steady place to live Within the past 12 months, did the food you bought not last and you didn't have the money to get more?: Never true Within the past 12 months, did you worry whether your food would run out before you got money to buy more?: Never true Do you have trouble paying for medicines?: No Do you have trouble getting transportation to medical appointments?: No Do you have trouble paying your heating and electricity bill?: No Do you have trouble taking care of your child, family member or friend?: No Do you have trouble with day-to-day activities such as bathing, preparing meals, shopping, managing finances, etc.?: No Are you currently unemployed and looking for a job?: No Are you interested in more education?: No Please select the resources that you would like help with: None THRIVE Score: 0 AUDIT C Alcohol Use Questionnaire (AUDIT-C) 1. How often do you have a drink containing alcohol?: Never 3. How often do you have six or more drinks on one occasion?: Never Total Score: 0 KLEVER-7 AMB Questionnaire KLEVER-7 Date KLEVER - 7 assessed: 08/18/24 Feeling nervous, anxious, or on edge: 0 = Not at all Not being able to stop or control worryin = Not at all Worrying too much about different things: 0 = Not at all Trouble relaxin = Not at all Being so restless that it is hard to sit still: 0 = Not at all Becoming easily annoyed or irritable: 0 = Not at all Feeling afraid as if something awful might happen: 0 = Not at all Total KLEVER-7 score (0-4 normal; 5-9 mild; 10-14 moderate; 15-21 severe): 0 Source: Developed by Drs. Kobe Guzman, Hollie Lewis, Harvey Ambriz and colleagues, with an educational kenneth from [employer]. Physical exam (Primary Care) Vital Signs: Last Vital Signs Temp 98.2 F 08/18/24 11:27 Pulse 60 08/18/24 11:27 BP 126/70 08/18/24 11:27 Pulse Ox 98 08/18/24 11:27 Oxygen Delivery Method Room Air 08/18/24 11:27 BMI result Body Mass Index 24.0 Tobacco/Smoking Status: Tobacco use Status Tobacco use date assessed 08/18/24 08/18/24 11:22 Patient Tobacco Use Status Never used Tobacco 08/18/24 11:33 PHQ-9: PHQ-9 Score PHQ-9: Total score 0 08/18/24 11:33 Thrive Assessment: Date of Thrive Assessment Date Thrive assessed 08/18/24 08/18/24 11:22 Coding Level of Care Code New Pt Level 4 (74567) Complex EM visit Add On G2211 Diagnoses Diabetes E11.9 Assessment & Plan Assessment & Plan (1) Diabetes: Comment: type 2-dx ~age 46-taking glipizide 7 Metformin-glucose usually 118-135 Code(s): E11.9 - Type 2 diabetes mellitus without complications Category: Medical Plan: BW revd with patient. Plan History of Present Illness The patient is a 69-year-old male presenting with concerns related to the management of his Type 2 Diabetes Mellitus. He is prescribed Metformin and Glipizide for diabetes management. Previously stable, his recent blood sugar levels were elevated due to a pharmacy error, where he was dispensed 500 mg of Metformin instead of 1000 mg. This discrepancy led to his blood sugar levels increasing to between 220-246 mg/dL. He has since corrected the dosage, and the blood sugar levels are improving. His Glycated Hemoglobin has been stable at 7.2, consistent with past measurements. Social History - Employment: Retired, previously worked for 16 years in [employer] work. - Housing: Resides with his . - Substance Use: Denies smoking and alcohol use; occasionally uses marijuana gummies for insomnia. - Activity Level: Engaged in seeking similar work that involves physical activity. - Functional Status: Independent in daily activities and driving, including at night. Review of Systems - Endocrine: Reports elevated blood sugar between 220-246 mg/dL due to a pharmacy error in medication dosage; no other acute symptoms reported. - Nervous System: Denies symptoms. - Respiratory System: Denies symptoms. - Cardiovascular System: Denies symptoms. - Gastrointestinal System: Denies symptoms. - Musculoskeletal System: Denies symptoms. Physical Exam General: Cooperative and healthy appearing Nutritional Appearance: Well nourished Orientation/consciousness: Patient oriented x3 Limitations: No limitations Head: Normal to inspection General: Appearance normal, both eyes and all related structures Neck: Normal visual inspection Chest: Normal palpation of entire chest wall Respiratory: N ormal respiratory effort Neurology: Patient oriented x3, no issues with driving at night. Results - Labs: Glycated Hemoglobin (A1c) 7.2 Plan The patient's Type 2 Diabetes Mellitus will be continued on the current regimen with Metformin at 1000 mg twice daily and Glipizide. A future assessment will determine if Glipizide discontinuation is necessary. The previous pharmacy error has been resolved. The patient will monitor his blood sugar levels carefully and maintain his dietary plan. A follow-up appointment is scheduled for six months, and he was instructed to contact the pharmacy if any medication issues occur. Patient was informed and verbally consented to the use of an ambient scribe for clinic note documentation during this visit. Discussion Notes I discussed with the patient the current management of his Type 2 Diabetes Mellitus, including the importance of maintaining the correct dosage of Metformin and his ongoing use of Glipizide. We talked about the possibility of adjusting his medication regimen in the future and about monitoring blood sugar levels to maintain them within a normal range. The patient understood the reason behind his elevated blood sugar readings due to a pharmacy dosage error and has addressed this issue. We also discussed the possibility of returning in six months, or sooner if needed, for a follow-up. I asked him to call the pharmacy directly if he notices any discrepancies in his medication. Patient Instructions - Take Metformin 1000 mg twice daily as prescribed. - Continue Glipizide as directed. - Monitor blood sugar levels regularly. - Maintain your dietary management plan. - Contact the pharmacy if there are any discrepancies with medication refills. - Follow up in six months for reevaluation of diabetes management. -
[2024-08-18 11:27] VITALS: BP 126/70; PULSE 60; TEMP 36.8; O2SAT 98; BMI 24.0
== END 2024-08-18 11:59 | disposition home or self-care (01) ==
LOC: HO.HMCSH 11:05
PROVIDERS: PCP Internal Medicine; Visit Provider Internal Medicine
DX: E11.9 Type 2 diabetes mellitus without complications (principal)

== ENCOUNTER → 2024-08-18 11:05 | Outpatient (BNVA) | payer MEDICARE, SELFPAY | PROVIDERS: PCP Internal Medicine; Visit Provider Internal Medicine | DX: E11.9 Type 2 diabetes mellitus without complications (principal); Z79.84 Long term (current) use of oral hypoglycemic drugs; Z79.899 Other long term (current) drug therapy | CPT/HCPCS: 96127; 99202 ==

== ENCOUNTER 2025-01-21 08:57 | Outpatient (REF) | payer MEDICARE, SELFPAY ==
[2025-01-21 11:38] LABS: Prostate Specific Antigen 6.13 ng/mL (<0.05-4.0)
== END 2025-01-21 08:58 | disposition home or self-care (01) ==
LOC: HO.HMGCLDS 08:57
PROVIDERS: PCP Internal Medicine; Visit Provider Urology
DX: R97.20 Elevated prostate specific antigen [PSA] (principal); Z12.5 Encounter for screening for malignant neoplasm of prostate
CPT/HCPCS: 36415; 84153

== ENCOUNTER 2025-02-10 08:09 | Outpatient (REF) | payer MEDICARE, SELFPAY ==
[2025-02-10 10:22] LABS: Appearance Urine Clear; Glucose Urine UA 100 mg/dL (Negative); Hematocrit 38.0 % (42.0-52.0); Hemoglobin 12.8 g/dl (14.0-18.0); Mean Corpuscular HGB Conc 33.7 g/dl (31.0-36.0); Mean Corpuscular Hemoglobin 31.2 pg (27.0-33.0); Mean Corpuscular Volume 92.7 fL (80.0-98.0); NRBC Abs Auto 0.000 X10*3/uL (0.0-0.012); NRBC Pct Auto 0.0 /100WBC (0.0-0.2); PH 5.5 (5.0-9.0); Platelet Count 272 X10*3/uL (160-400); Red Blood Count 4.10 X10*6/uL (4.60-5.80); Specific Gravity - Urine 1.015 (1.005-1.025); White Blood Count 7.6 X10*3/uL (4.8-10.8)
[2025-02-10 10:46] LABS: Alanine Aminotransferase 25 U/L (0-40); Albumin Level 4.3 g/dL (3.5-5.0); Alkaline Phosphatase 71 U/L (39-117); Anion Gap 11 (12-20); Aspartate Amino Transferase 24 U/L (5-37); Blood Urea Nitrogen 17 mg/dL (9-16); Calcium 9.5 mg/dL (8.4-10.2); Carbon Dioxide 25 mmol/L (22-29); Chloride 108 mmol/L (96-108); Cholesterol 123 mg/dL (<200); Estimated Glomerular Filt Rate > 60; HDL Cholesterol 37 mg/dL (>40); Potassium 4.8 mmol/L (3.3-5.1); Sodium 139 mmol/L (135-145); Total Protein 6.4 g/dL (6.5-8.0); Triglycerides 132 mg/dL (<150)
[2025-02-10 11:13] LABS: Thyroid Stimulating Hormone 1.77 uIU/mL (0.32-4.0)
== END 2025-02-10 08:10 | disposition home or self-care (01) ==
LOC: HO.HMGCLDS 08:09
PROVIDERS: PCP Internal Medicine; Visit Provider Internal Medicine
DX: E11.9 Type 2 diabetes mellitus without complications (principal)
CPT/HCPCS: 36415; 80048; 80061; 80076; 81003; 83036; 84443; 85027

== ENCOUNTER 2025-02-16 09:50 | Outpatient (AMB) | payer MEDICARE, SELFPAY ==
--- NOTE | 2025-02-16 10:03 | A.OFFPC_ITS ---
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 Accompanied by: Self / Same As Patient Allergies No Known Allergies Allergy (Verified 02/16/25 10:06) Tobacco use date assessed: 02/16/25 Fall risk assessment: No Falls in past year Last assessed Fall Risk: 08/18/24 Dental Screening Dental Screen Date: 02/16/25 Did you have a dental visit in the last 12 months?: No Did you have a dental problem in the last 6 months where you did not have access to dental care?: No [facility] Medical History COVID-19 vaccine series completed Asthma Elevated cholesterol HTN (hypertension) Diabetes Surgical History H/O colonoscopy (~08/18/21) Family History Father Pancoast tumor Mother Heart attack Social History Housing: Apartment Are you a primary healthcare specialist to a significant other at home: No Do you presently have visiting nurse or other home services: No Alcohol intake: current Alcohol intake frequency: does not drink Patient Tobacco Use Status: Never used Tobacco service: No Current occupational status: retired Cognitive needs: No Hearing needs: No Vision needs: Yes (reading glasses) Questionnaire PHQ-9 Over the last 2 weeks, how often have you been bothered by any of the following problems? 1. Little interest or pleasure in doing things: not at all 2. Feeling down, depressed, or hopeless: not at all 3. Trouble falling or staying asleep, or sleeping too much: not at all 4. Feeling tired or having little energy: not at all 5. Poor appetite or overeating: not at all 6. Feeling bad about yourself - or that you are a failure or have let yourself or your family down: not at all 7. Trouble concentrating on things, such as reading the newspaper or watching television: not at all 8. Moving or speaking so slowly that other people could have noticed. Or the opposite - being so fidgety or restless that you have been moving around a lot more than usual: not at all 9. Thoughts that you would be better off or of hurting yourself in some way: not at all Total score: 0 Source: Developed by Drs. Kobe Guzman, Hollie Lewis, Harvey Ambriz and colleagues, with an educational kenneth from [employer]. Thrive Questionnaire Date Thrive assessed: 02/16/25 I am a: Patient What is your living situation today?: I have a steady place to live Within the past 12 months, did the food you bought not last and you didn't have the money to get more?: Never true Within the past 12 months, did you worry whether your food would run out before you got money to buy more?: Never true Do you have trouble paying for medicines?: No Do you have trouble getting transportation to medical appointments?: No Do you have trouble paying your heating and electricity bill?: No Do you have trouble taking care of your child, family member or friend?: No Do you have trouble with day-to-day activities such as bathing, preparing meals, shopping, managing finances, etc.?: No Are you currently unemployed and looking for a job?: No Are you interested in more education?: No Please select the resources that you would like help with: None THRIVE Score: 0 AUDIT C Alcohol Use Questionnaire (AUDIT-C) 1. How often do you have a drink containing alcohol?: Never 3. How often do you have six or more drinks on one occasion?: Never Total Score: 0 KLEVER-7 AMB Questionnaire KLEVER-7 Date KLEVER - 7 assessed: 02/16/25 Feeling nervous, anxious, or on edge: 0 = Not at all Not being able to stop or control worryin = Not at all Worrying too much about different things: 0 = Not at all Trouble relaxin = Not at all Being so restless that it is hard to sit still: 0 = Not at all Becoming easily annoyed or irritable: 0 = Not at all Feeling afraid as if something awful might happen: 0 = Not at all Total KLEVER-7 score (0-4 normal; 5-9 mild; 10-14 moderate; 15-21 severe): 0 Source: Developed by Drs. Kobe Guzman, Hollie Lewis, Harvey Ambriz and colleagues, with an educational kenneth from [employer]. Physical exam (Primary Care) Vital Signs: Last Vital Signs Temp 97.8 F 02/16/25 10:05 Pulse 70 02/16/25 10:05 BP 117/58 L 02/16/25 10:05 Pulse Ox 95 02/16/25 10:05 Oxygen Delivery Method Room Air 02/16/25 10:05 Tobacco/Smoking Status: Tobacco use Status Tobacco use date assessed 02/16/25 02/16/25 10:08 Patient Tobacco Use Status Never used Tobacco 02/16/25 10:04 PHQ-9: PHQ-9 Score PHQ-9: Total score 0 02/16/25 10:08 Thrive Assessment: Date of Thrive Assessment Date Thrive assessed 02/16/25 02/16/25 10:08 Coding Level of Care Code Est Pt Level 4 (56654) Complex EM visit Add On G2211 Diagnoses Diabetes E11.9 Assessment & Plan Assessment & Plan (1) Diabetes: Comment: type 2-dx ~age 46-taking glipizide 7 Metformin-glucose usually 118-135 Code(s): E11.9 - Type 2 diabetes mellitus without complications Category: Medical Plan: History of Present Illness - The patient is a 69-year-old male presenting with Type 2 Diabetes Mellitus man agement and preventative care. - Type 2 Diabetes Mellitus: Previously on metformin and glipizide, with elevated blood sugar levels due to incorrect metformin dosage, now corrected, resulting in improved control with an A1c of 7.2%. - Anemia: Recent labs showed slightly low hemoglobin and hematocrit, not deemed concerning. - Prostate health: Under urologist follow-up, awaiting specialized test results, potential biopsy needed. - Preventative care: Agreed to influenza vaccination during the visit. - Exercise and diet: Engages in regular exercise and maintains a healthy diet with fruit smoothies and vegetables. Social History - Exercise: The patient engages in regular physical activity and has resumed working. - Diet: The patient maintains a healthy diet, including fruit smoothies and vegetables such as broccoli. Review of Systems - General: Denies any pain or discomfort. Physical Exam General: Cooperative and healthy appearing Nutritional Appearance: Well nourished Orientation/consciousness: Patient oriented x3 Limitations: No limitations Head: Normal to inspection General: Appearance normal, both eyes and all related structures Neck: Normal visual inspection Chest: Normal palpation of entire chest wall Respiratory: Normal respiratory effort Neurology: Patient oriented x3 Results - Labs: Hemoglobin A1c at 7.2%, random glucose at 190 mg/dL, slightly low hemoglobin and hematocrit levels. - Tests: Awaiting results from a specialized prostate blood test conducted by the urologist. Plan - Continue diabetes management with metformin and glipizide, monitor blood sugar levels. - Monitor anemia with routine blood work for hemoglobin and hematocrit. - Await prostate test results from urologist, consider biopsy if needed. - Administer influenza vaccination today. - Encourage continued exercise and healthy diet. Discussion Notes I discussed with the patient the importance of maintaining diabetes management with metformin and glipizide, and the need to monitor blood sugar levels regularly. We reviewed the slightly low hemoglobin and hematocrit levels, and I advised routine follow-up blood work. We also discussed the ongoing prostate health monitoring with the urologist and the potential need for a biopsy based on upcoming test results. The patient agreed to receive the influenza vaccination today. I encouraged him to continue his exercise routine and maintain a healthy diet. Patient Instructions - Continue taking metformin and glipizide as prescribed. - Monitor blood sugar levels regularly. - Follow up with routine blood work to check hemoglobin and hematocrit levels. - Await results from the prostate test and follow up with the urologist. - Receive the influenza vaccination today. - Continue regular exercise and maintain a healthy diet. Orders: Orders Influenza [id number] Immunization Today Z23 - Encounter for immunization Medications: New Fluarix [id number] (PF) (flu vac ts (6mos up)-PF) 0.5 mL IM ONCE 0.5 mL 0RF NS Z23 - Encounter for immunization
[2025-02-16 10:05] VITALS: BP 117/58; PULSE 70; TEMP 36.6; O2SAT 95
== END 2025-02-16 10:43 | disposition home or self-care (01) ==
LOC: HO.HMCSH 09:50
PROVIDERS: PCP Internal Medicine; Visit Provider Internal Medicine
DX: Z23 Encounter for immunization (principal); E11.9 Type 2 diabetes mellitus without complications

== ENCOUNTER → 2025-02-16 09:50 | Outpatient (BNVA) | payer MEDICARE, SELFPAY | PROVIDERS: PCP Internal Medicine; Visit Provider Internal Medicine | DX: E11.9 Type 2 diabetes mellitus without complications (principal); Z23 Encounter for immunization; D64.9 Anemia, unspecified; Z79.84 Long term (current) use of oral hypoglycemic drugs; Z13.30 Encounter for screening examination for mental health and behavioral disorders, unspecified; Z13.39 Encounter for screening examination for other mental health and behavioral disorders | CPT/HCPCS: 90471; 90656; 96127; 99212 ==